=== PATIENT | female | born 1975 | race Caucasian/White ===

== ENCOUNTER → 2020-12-19 10:28 | Outpatient (CLI) | payer OTHER, SELFPAY ==
[2020-12-19 12:27] LABS: Hemoglobin A1c 5.5 % (3.8-5.6)
[2020-12-19 12:43] LABS: ALB/GLOB Ratio 0.8 RATIO (0.9-2.4); AST(SGOT) 14 U/L (15-37); Alanine Aminotransfer ALT/SGPT 17 U/L (13-56); Albumin, Serum 3.6 g/dL (3.2-5.0); Alkaline Phosphatase 93 U/L (45-117); Anion Gap 8 (5-15); BUN 9 mg/dL (7-18); BUN/Creat Ratio 10.5 RATIO (10-20); Calcium,Total 9.1 mg/dL (8.5-10.1); Chloride 104 mmol/L (98-107); Creatinine, Serum 0.86 mg/dL (0.55-1.02); EST Glomerular Filtration Rate 75 mL/min (>60); Est Glom Filt Rate - Afr Amer 91 mL/min (>60); Globulin 4.5 g/dL (2.2-4.2); Glucose 89 mg/dL (74-106); Protein, Total 8.1 g/dL (6.4-8.2); Sodium Level 138 mmol/L (136-145); T4 Free Direct 0.88 ng/dL (0.76-1.46); Thyroid Stim Hormone (TSH) 2.56 uIU/mL (0.358-3.74)
[2020-12-20 14:45] LABS: Thyroid Peroxidase AB < 8 IU/mL (0-34)
== END ==
PROVIDERS: Referring Provider Dermatology Pediatric Dermatology; Visit Provider Dermatology Pediatric Dermatology
DX: L30.9 Dermatitis, unspecified (principal); L40.0 Psoriasis vulgaris
CPT/HCPCS: 36415; 80053; 83036; 84439; 84443; 86376

== ENCOUNTER → 2020-12-24 08:47 | Outpatient (CLI) | payer OTHER, SELFPAY ==
--- NOTE | 2020-12-24 08:56 | US_ITS ---
STUDY: SUPERFICIAL ULTRASOUND - POSTERIOR NECK REGION REASON FOR EXAM: Female, 45 years old. FATTY DEPOSIT POSTERIOR NECK TECHNIQUE: A superficial ultrasound was performed with real-time and static graham-scale imaging. COMPARISON: None. FINDINGS: No identifiable mass or abnormality. There may be slightly increased prominence of fatty tissue in this area. US/Head/Neck Soft Tissue IMPRESSION: As above, no area of suspicious finding Electronically Signed: Bashir Solis DO at 1:17 EDT Tel , Service support ,
== END ==
PROVIDERS: Visit Provider Dermatology Pediatric Dermatology
DX: L30.9 Dermatitis, unspecified (principal)
CPT/HCPCS: 76536